=== PATIENT | female | born 1975 | race Caucasian/White ===

== ENCOUNTER 2016-12-10 04:14 | Emergency (ER) | payer OTHER, BC ==
[2016-12-10 04:53] VITALS: BP 111/71
[2016-12-10] MEDS ORDERED: HYDROmorphone 1 MG/ML Syringe IM ONE (05:15)
[2016-12-10] MEDS ORDERED: Sodium Chloride 0.9% 10 ML Syringe FLUSH PRN (05:46)
[2016-12-10] MEDS ORDERED: Ketorolac 30 MG/ML SDV IVPUSH ONE (05:46)
--- NOTE | 2016-12-10 06:31 | EDM.PDOC ---
ED HPI GENERAL MEDICAL PROBLEM - General Chief Complaint: Upper Extremity Injury/Pain Stated Complaint: POSSIBLE BROKEN LEFT ARM Time Seen by Provider: 12/10/16 04:39 Source of Information: Reports: Patient History Limitations: Reports: No Limitations - History of Present Illness INITIAL COMMENTS - FREE TEXT/NARRATIVE: This patient fell off of her deck which is about 4 or 5 feet high last night. She landed on her left arm with her hand outstretched. She complains of pain in the left elbow. This happened about 11:30 last night and she thought that the pain was going to get better but it only get worse. She has to hold her arm straight and says at any attempt to bend it causes increased pain Left Elbow Pain Score (Numeric/FACES): 7 - Related Data Allergies Allergy/AdvReac Type Severity Reaction Status Date / Time Penicillins Allergy unknown Verified 12/10/16 04:29 Home Meds: Home Meds NK [No Known Home Meds] 12/10/16 [History] Past Medical History - Past Health History Medical/Surgical History: Denies Medical/Surgical History Social & Family History - Family History Family Medical History: Noncontributory - Tobacco Use Smoking Status *Q: Never Smoker - Caffeine Use Caffeine Use: Reports: Coffee - Recreational Drug Use Recreational Drug Use: No Review of Systems - Review of Systems Review Of Systems: ROS reveals no pertinent complaints other than HPI. ED EXAM, GENERAL - Physical Exam Exam: See Below Exam Limited By: No Limitations General Appearance: Alert, WD/WN, Moderate Distress Extremities: Other (There is some mild swelling to the left elbow and it's very tender over the olecranon process and the lateral side of the elbow where there is some ecchymosis. Neurovascular tendon is intact to the left hand.) Course - Vital Signs Last Recorded V/S: Last Vital Signs Temp 36.3 C 12/10/16 04:25 Pulse 86 12/10/16 04:25 Resp 18 12/10/16 04:25 BP 111/71 12/10/16 04:25 Pulse Ox 97 12/10/16 04:25 - Orders/Labs/Meds Orders: Active Orders 24 hr Category Date Time Status Elbow Min 3V Lt [CR] Stat Exams 12/10/16 04:39 Taken Sodium Chloride 0.9% [Saline Flush] Med 12/10/16 05:46 Active 10 ml FLUSH ASDIRECTED PRN Saline Lock Insert [OM.PC] Urgent Oth 12/10/16 05:45 Ordered Medication Orders Sodium Chloride (Saline Flush) 10 ml FLUSH ASDIRECTED PRN PRN Reason: Keep Vein Open Last Admin: 12/10/16 05:57 Dose: 10 ml Meds: Medications Generic Name Dose Route Start Last Admin Trade Name Freq PRN Reason Stop Dose Admin Sodium Chloride 10 ml 12/10/16 05:46 12/10/16 05:57 Saline Flush FLUSH 10 ml ASDIRECTED PRN Administration Keep Vein Open Discontinued Medications Generic Name Dose Route Start Last Admin Trade Name Freq PRN Reason Stop Dose Admin Hydromorphone HCl 1 mg 12/10/16 05:15 12/10/16 05:20 Dilaudid IM 12/10/16 05:16 1 mg ONETIME ONE Administration Ketorolac Tromethamine 30 mg 12/10/16 05:46 12/10/16 05:53 Toradol IVPUSH 12/10/16 05:47 30 mg ONETIME ONE Administration - Radiology Interpretation Free Text/Narrative:: X-ray shows a small chip from the coronoid process of ulna. There were no other obvious fractures. The amount of swelling and ecchymosis as well as the particular mechanism of injury suggests that there is some ligamentous injury also. - Re-Assessments/Exams Free Text/Narrative Re-Assessment/Exam: 12/10/16 06:34 Initially she received Dilaudid 1 mg IM. That made her a little bit woozy but still did not completely relieve the pain. An IV was established prior to splinting and she received Toradol 30 mg that actually seem to be enough to control her pain reasonably well. We were able to put her arm at a 90 angle and placed a posterior splint to the entire arm and it was placed in a sling. Assessment is elbow fracture with fracture of the coronoid process of the ulna and ligamentous injury plan she was prescribed Percocet 5/325 #20 tablets one or 2 every 4 hours standard precautions were given recommend she keep the arm in a sling and keep it elevated and apply ice and should follow-up with Dr. Mcbride orthopedic surgeon on Sunday morning. She was also advised to check her fingers frequently and make sure that she has good sensation and circulation Departure - Departure Time of Disposition: 06:28 Disposition: Home, Self-Care 01 Condition: Fair Clinical Impression: Fracture of elbow - Discharge Information Referrals: Daniela Lopez NP [Primary Care Provider] - Forms: ED Department Discharge Additional Instructions: There is a small chip fracture in your left elbow which suggest that the elbow also has some ligamentous injuries like a sprain. You will need to see the orthopedic surgeon Dr. Mcbride on Sunday. Keep the elbow in the splint and sling. Apply ice and keep elevated as much as possible. Make sure that she has good sensation and the ability to move your fingers. The pain medication can cause sedation or falls and will also impair driving or operating machinery. Ibuprofen may also help. - My Orders Last 24 Hours: My Active Orders 12/10/16 04:39 Elbow Min 3V Lt [CR] Stat 12/10/16 05:45 Saline Lock Insert [OM.PC] Urgent 12/10/16 05:46 Sodium Chloride 0.9% [Saline Flush] 10 ml FLUSH ASDIRECTED PRN - Assessment/Plan Last 24 Hours: My Active Orders 12/10/16 04:39 Elbow Min 3V Lt [CR] Stat 12/10/16 05:45 Saline Lock Insert [OM.PC] Urgent 12/10/16 05:46 Sodium Chloride 0.9% [Saline Flush] 10 ml FLUSH ASDIRECTED PRN
--- NOTE | 2016-12-11 10:00 | CR ---
Elbow Min 3V Lt HISTORY: Trauma COMPARISON: None FINDINGS: Well-corticated bony density adjacent to the coronoid process likely reflecting old injury . There is no effusion to suggest acute injury. No dislocation or bony destructive process.
== END 2016-12-10 06:48 | disposition home or self-care (01) ==
LOC: JP.ED 04:14
DX: S52.042A Displaced fracture of coronoid process of left ulna, initial encounter for closed fracture (principal); Z88.0 Allergy status to penicillin; W17.89XA Other fall from one level to another, initial encounter
CPT/HCPCS: 73080; 96372; 96374; 99284; J1170; J1885; J7050

== ENCOUNTER 2021-08-29 06:32 | Day surgery (SDC) | payer BC, OTHER ==
[2021-08-29] MEDS ORDERED: Sodium Chloride 0.9% 1,000 ML IV SCH (07:00)
[2021-08-29] MEDS ORDERED: Propofol 200 MG/20 ML SDV ONE (07:27)
[2021-08-29] MEDS ORDERED: Midazolam 1 MG/ML 2 ML SDV ONE (07:27)
[2021-08-29] MEDS ORDERED: fentaNYL 100 MCG/2 ML SDV ONE (07:27)
[2021-08-29 10:03] VITALS: BP 121/62; PULSE 75
== END 2021-08-29 09:50 | disposition home or self-care (01) ==
LOC: JP.SDS 06:32
PROVIDERS: ATTEND Surgery
DX: Z12.11 Encounter for screening for malignant neoplasm of colon (principal); Z88.0 Allergy status to penicillin
CPT/HCPCS: J2250; J2704; J3010; J7030